=== PATIENT | female | born 1960 | race Caucasian/White ===

== ENCOUNTER 2016-06-21 18:10 | Emergency (ER) | payer BC ==
[~2016-06-21] VITALS: Ht 162.6 cm; Wt 77.9 kg
[~2016-06-21 18:10] MED LIST: ALBU1AER9 INH; ALEN70TA4 PO; CALC-51 PO; CHOL2000 PO; DROS1TAB24 PO; MULT-506 PO; OMEGCAP2 PO; ONDA4TAB7 SL; OXYC2.5T3 PO; PRT40 PO; SYMIN INH
[2016-06-21 18:19] VITALS: TEMP 36.8; Ht 162.6 cm; Wt 77.9 kg
[2016-06-21] MEDS ORDERED: SODIUM CHLORIDE 0.9% 1000ML 1,000 ML IV STA (18:42)
[2016-06-21] MEDS ORDERED: ONDANSETRON INJ 2 MG/ML 2 ML VIAL IV STA (18:42)
[2016-06-21] MEDS: MoRPHine SULFATE 4 MG/ML 1 ML CARP\\VIAL IV PRN ×2 (19:04→20:44)
--- NOTE | 2016-06-21 19:11 | DIAGNOSTIC IMAGING REPORT ---
CHEST ONE VIEW PORTABLE CLINICAL HISTORY: Pain, radiating to the abdomen. COMPARISON STUDY: No previous studies for comparison. FINDINGS: The cardiac and mediastinal contours are normal. There is no evidence of focal pulmonary consolidation. There is no evidence of failure. No pleural effusions are visualized.[A linear density at the left lung base likely represents subsegmental atelectatic change. There is no free air. IMPRESSION: No active disease in the chest. Electronically signed by: Andrew Ramirez M.D. 06/21/2016 7:10 PM Dictated Date/Time: 06/21/2016 7:09 PM
[2016-06-21 19:15] LABS: BASO % 0.2 %; BASO ABS # 0.02 K/uL (0-0.2); COMPLETE YES; EOS % 0.4 %; HEMATOCRIT 43.7 % (37-47); IG% 0.3 %; LYMPH % 21.9 %; LYMPH ABS # 2.39 K/uL (1.2-3.4); MEAN CORPUSCULAR HEMOGLOBIN 30.5 pg (25-34); MEAN CORPUSCULAR HGB CONC 34.3 g/dl (32-36); MEAN PLATELET VOLUME 9.8 fL (7.4-10.4); MONO % 6.4 %; NEUT % 70.8 %; PLATELET COUNT 291 K/uL (130-400); RED BLOOD COUNT 4.91 M/uL (4.2-5.4); WHITE BLOOD COUNT 10.89 K/uL (4.8-10.8)
[2016-06-21] MEDS ORDERED: ONDA4TAB46 PO (19:26)
[2016-06-21] MEDS ORDERED: MAGN400T6 PO (19:26)
[2016-06-21 19:32] LABS: BUN/CREATININE RATIO 16.7 (10-20); CALCIUM 9.4 mg/dl (8.5-10.1); CREATININE 0.72 mg/dl (0.60-1.20); POTASSIUM 3.6 mmol/L (3.5-5.1)
[2016-06-21 19:51] LABS: MANUAL MICROSCOPIC REQUIRED? NO; REVIEW REQ? NO; URINE APPEARANCE CLOUDY (CLEAR); URINE BILIRUBIN NEG (NEG); URINE COLOR DK YELLOW; URINE EPITHELIAL CELL AUTO >30 /lpf (0-5); URINE NITRITE NEG (NEG); URINE SPECIFIC GRAVITY 1.023 (1.000-1.030); UROBILINOGEN NEG (NEG); ZZUR CULT IF INDIC CLEAN CATCH NO
[2016-06-21] MEDS ORDERED: PERCOCET HOME PACK PO ONE (20:00)
[2016-06-21] MEDS ORDERED: ONDA4TAB10 SL (20:01)
--- NOTE | 2016-06-21 20:02 | EMERGENCY ROOM VISIT NOTE ---
History Report prepared by Kyle: Jonna Lacey Under the Supervision of: Dr. Wei Villalobos D.O. First contact with patient: 18:24 Chief Complaint: ABDOMINAL PAIN Stated Complaint: ABD PAIN DIARRHEA Nursing Triage Summary: Triage note: pt reports since thursday she has had a headache, nausea, vomitting. pt reports generalized abd pain since approx 1230 today. History of Present Illness The patient is a 55 year old female who presents to the Emergency Room with complaints of constant diffuse abdominal pain that started about 6 hours ago. The pain is worse right before she has a bowel movement. The patient states that she woke up this morning feeling well. She states that she ate eggs and toast for breakfast. After eating, she developed the abdominal pain. She states that the pain felt like she is going to experience diarrhea, but when she tried to go to the bathroom she did not have a bowel movement. She eventually experienced diarrhea. She is unsure of how many episodes of diarrhea she experienced. The patient adds that she has not felt well since Thursday. She states that today was the first day that she was doing better and able to eat. The patient states that she developed a severe headache 3 days ago and it persisted until yesterday. She reports that she has never experienced a headache that severe. She denies any headaches today. The patient also experienced nausea and vomiting 3 days ago, so she went to a walk-in clinic and they prescribed her Zofran. The Zofran relieved her nausea and vomiting. She is currently experiencing nausea, but denies any vomiting. She did not try to relieve the nausea with Zofran. The patient states that she called her PCP and described her symptoms. They recommended that she come into the ED for further evaluation. Source of History: patient Onset: 6 hours ago Position: abdomen (diffuse) Timing: constant Modifying Factors (Worsening): other (right before bowel movement) Associated Symptoms: + diarrhea, + headache, + nausea, + vomiting Review of Systems See HPI for pertinent positives & negatives. A total of 10 systems reviewed and were otherwise negative. Past Medical & Surgical Medical Problems: (1) Asthma Family History Cancer Heart disease Hypertension Social History Smoking Status: Never Smoker Alcohol Use: none Drug Use: none Marital Status: Housing Status: lives with family Occupation Status: employed Current/Historical Medications Scheduled Budesonide/Formoterol Fumarate (Symbicort 160-4.5 Mcg/Act), 2 PUFFS INH DAILY Calcium Carbonate-Vitamin D (Calcium), 1,000 MG PO DAILY Cholecalciferol (Vitamin D3), 2,000 MG PO DAILY Magnesium Oxide (Mag-Ox), 400 MG PO DAILY Multivitamin (Multivitamin), 1 TAB PO DAILY Ondasetron Odt (Zofran Odt), 4 MG SL Q6H Scheduled PRN Albuterol (Proair Hfa), 2 PUFFS INH Q6H PRN for prn Ondansetron Hcl (Zofran), 4 MG PO for Nausea Allergies Coded Allergies: Amoxicillin (Unverified Allergy, Severe, rash-see comment, 06/21/16) pt states a rash happened years ago. Unsure if it was the Amoxicillin or another medication she was taking with it at that time. Penicillins (Verified Allergy, Unknown, `, 06/21/16) NSAIDs (Verified Adverse Reaction, Unknown, PER PT PCP, 06/21/16) Physical Exam Vital Signs Date Time Temp Pulse Resp B/P Pulse Ox O2 Delivery O2 Flow Rate FiO2 06/21/16 18:19 36.8 91 18 143/98 98 Room Air Physical Exam CONSTITUTIONAL/VITAL SIGNS: Reviewed / noted above. GENERAL: Non-toxic in appearance. INTEGUMENTARY: Warm, dry, and [place]. HEAD: Normocephalic. EYES: without scleral icterus or trauma. ENT/OROPHARYNX: clear and moist. LYMPHADENOPATHY/NECK: Is supple without lymphadenopathy or meningismus. RESPIRATORY: Lungs clear and equal. CARDIOVASCULAR: Regular rate and rhythm. GI/ABDOMEN: Soft. Mild diffuse tenderness. No organomegaly or pulsatile mass. No rebound or guarding. Normal bowel sounds. EXTREMITIES: Warm and well perfused. BACK: No CVA tenderness. NEUROLOGICAL: Intact without focal deficits. PSYCHIATRIC: normal affect. MUSCULOSKELETAL: Normally developed with good muscle tone. Medical Decision & Procedures ER Provider Diagnostic Interpretation: X ray results and stated below per my interpretation and radiology interpretation. CHEST ONE VIEW PORTABLE IMPRESSION: No active disease in the chest. Electronically signed by: Andrew Ramirez M.D. 06/21/2016 7:10 PM Dictated Date/Time: 06/21/2016 7:09 PM Laboratory Results 06/21/16 19:10 Red Blood Count 4.91, Mean Corpuscular Volume 89.0, Mean Corpuscular Hemoglobin 30.5, Mean Corpuscular Hemoglobin Concent 34.3, Mean Platelet Volume 9.8, Neutrophils (%) (Auto) 70.8, Lymphocytes (%) (Auto) 21.9, Monocytes (%) (Auto) 6.4, Eosinophils (%) (Auto) 0.4, Basophils (%) (Auto) 0.2, Neutrophils # (Auto) 7.71, Lymphocytes # (Auto) 2.39, Monocytes # (Auto) 0.70, Eosinophils # (Auto) 0.04, Basophils # (Auto) 0.02 06/21/16 19:10 Test 06/21/16 19:05 06/21/16 19:10 Urine Color DK YELLOW Urine Appearance CLOUDY (CLEAR) Urine pH 5.0 (4.5-7.5) Urine Specific [place] 1.023 (1.000-1.030) Urine Protein NEG (NEG) Urine Glucose (UA) NEG (NEG) Urine Ketones 1+ (NEG) Urine Occult Blood NEG (NEG) Urine Nitrite NEG (NEG) Urine Bilirubin NEG (NEG) Urine Urobilinogen NEG (NEG) Urine Leukocyte Esterase NEG (NEG) Urine WBC (Auto) 1-5 /hpf (0-5) Urine RBC (Auto) 0-4 /hpf (0-4) Urine Hyaline Casts (Auto) 1-5 /lpf (0-5) Urine Epithelial Cells (Auto) >30 /lpf (0-5) Urine Bacteria (Auto) NEG (NEG) White Blood Count 10.89 K/uL (4.8-10.8) Red Blood Count 4.91 M/uL (4.2-5.4) Hemoglobin 15.0 g/dL (12.0-16.0) Hematocrit 43.7 % (37-47) Mean Corpuscular Volume 89.0 fL (80-100) Mean Corpuscular Hemoglobin 30.5 pg (25-34) Mean Corpuscular Hemoglobin Concent 34.3 g/dl (32-36) Platelet Count 291 K/uL (130-400) Mean Platelet Volume 9.8 fL (7.4-10.4) Neutrophils (%) (Auto) 70.8 % Lymphocytes (%) (Auto) 21.9 % Monocytes (%) (Auto) 6.4 % Eosinophils (%) (Auto) 0.4 % Basophils (%) (Auto) 0.2 % Neutrophils # (Auto) 7.71 K/uL (1.4-6.5) Lymphocytes # (Auto) 2.39 K/uL (1.2-3.4) Monocytes # (Auto) 0.70 K/uL (0.11-0.59) Eosinophils # (Auto) 0.04 K/uL (0-0.5) Basophils # (Auto) 0.02 K/uL (0-0.2) RDW Standard Deviation 42.2 fL (36.4-46.3) RDW Coefficient of Variation 13.0 % (11.5-14.5) Immature Granulocyte % (Auto) 0.3 % Immature Granulocyte # (Auto) 0.03 K/uL (0.00-0.02) Anion Gap 12.0 mmol/L (3-11) Est Creatinine Clear Calc Drug Dose 91.3 ml/min Estimated GFR () 110.8 Estimated GFR (Non- 95.6 BUN/Creatinine Ratio 16.7 (10-20) Calcium Level 9.4 mg/dl (8.5-10.1) Total Bilirubin 0.5 mg/dl (0.2-1) Direct Bilirubin 0.1 mg/dl (0-0.2) Aspartate Amino Transf (AST/SGOT) 16 U/L (15-37) Alanine Aminotransferase (ALT/SGPT) 19 U/L (12-78) Alkaline Phosphatase 64 U/L (45-117) Total Protein 7.5 gm/dl (6.4-8.2) Albumin 4.0 gm/dl (3.4-5.0) Lipase 178 U/L (73-393) Laboratory results as stated above per my review. Medications Administered Medications (Trade) Dose Ordered Sig/Hilaria Route Start Time Stop Time Status Last Admin Dose Admin Sodium Chloride (Nss 1000ml) 1,000 ml @ 999 mls/hr Q1H1M STAT IV 06/21/16 18:42 06/21/16 19:42 DC 06/21/16 19:03 999 MLS/HR Ondansetron HCl (Zofran Inj) 4 mg NOW STAT IV 06/21/16 18:42 06/21/16 18:43 DC 06/21/16 19:03 4 MG Morphine Sulfate (MoRPHine SULFATE INJ) 4 mg Q1H PRN IV 06/21/16 19:00 07/05/16 18:59 06/21/16 19:04 4 MG ED Course 1839: Previous medical records were reviewed. The patient was evaluated in room A10. A complete history and physical examination was performed. 1841: Ordered Zofran Inj 4 mg IV, Sodium Chloride 1000 ml @ 999 mls/hr IV 1899: Ordered Morphine Sulfate 4 mg IV 1955: On reevaluation, the patient is doing better. I discussed the results and findings with the patient. She verbalized agreement of the treatment plan. She was discharged home. 1999: Ordered Oxycodone/Acetaminophen 1 homepack PO Medical Decision Differential considered: pancreatitis, hepatitis, or acute cholecystitis, AAA, UTI, pyelonephritis, kidney stones, appendicitis, diverticulitis, shingles, bowel obstruction mesenteric ischemia, intussusception, hernia, ovarian torsion , ruptured ovarian cyst. This is a 55-year-old female who presents to the ED with a chief complaint of nausea and vomiting as well as abdominal cramps and diarrhea. The patient states that her symptoms started on Thursday around 4 PM. She began having vomiting and a headache. She also had 2 bowel movements that day. She was prescribed some Zofran and seemed to improve. This morning she states that she ate some eggs. This afternoon around noon she developed cramping abdominal pain as well as numerous episodes of diarrhea. She states that everything is going through her. She continues to have nausea. Denies any vomiting at this time. Her abdominal pain is somewhat diffuse. Her vital signs are stable. Her physical exam reveals some mild tenderness diffusely on the abdomen. She is otherwise nontoxic in appearance. Chest x-ray did not show acute disease. White blood cell count was 10.9. Complete metabolic panel was normal. Lipase is negative. Urine revealed 1+ ketones. The patient was treated with IV fluids , IV Zofran as well as IV morphine. The patient was told the results of the tests. She was feeling better at time of disposition. She was discharged with a Percocet home pack and a prescription for Zofran. Impression Primary Impression: Vomiting and diarrhea Scribe Attestation The scribe's documentation has been prepared under my direction and personally reviewed by me in its entirety. I confirm that the note above accurately reflects all work, treatment, procedures, and medical decision making performed by me. Departure Information Dispostion Home / Self-Care Prescriptions Ondasetron Odt (ZOFRAN ODT) 4 Mg Tab 4 MG SL Q6H for Nausea, #20 TAB Prov: Wei Villalobos D.O. 06/21/16 Referrals Ck Adams M.D. (PCP) Forms Call Back Authorization, HOME CARE DOCUMENTATION FORM, IMPORTANT VISIT INFORMATION Patient Instructions Diarrhea, My [facility] Additional Instructions Zofran: Allow one tablet to dissolve under the tongue every 6 hours as needed for nausea or vomiting. Anticipate improvement of symptoms over the next 2-3 days. If symptoms persist, contact your doctor in follow-up within this week. If things worsen, return for reevaluation.
[2016-06-21 20:20] VITALS: BP 140/69; PULSE 81; O2SAT 96
== END 2016-06-21 20:50 | disposition home or self-care (01) ==
LOC: C.EDB 18:11 → C.EDA 20:50
DX: R11.10 Vomiting, unspecified (principal); R19.7 Diarrhea, unspecified; J45.909 Unspecified asthma, uncomplicated; Z80.9 Family history of malignant neoplasm, unspecified; Z82.49 Family history of ischemic heart disease and other diseases of the circulatory system; Z88.1 Allergy status to other antibiotic agents; Z88.0 Allergy status to penicillin

== ENCOUNTER → 2017-08-11 | Outpatient (CLI) | payer OTHER ==
[~2017-08-11] MED LIST changes: -ALEN70TA4 PO; -DROS1TAB24 PO; +MAGN400T6 PO; -OMEGCAP2 PO; +ONDA4TAB46 PO; -ONDA4TAB7 SL; -OXYC2.5T3 PO; -PRT40 PO
--- NOTE | 2017-08-12 14:12 | MAMMOGRAPHY REPORT ---
BILATERAL DIGITAL SCREENING MAMMOGRAM TOMOSYNTHESIS WITH CAD: 08/11/2017 CLINICAL HISTORY: Routine screening. Patient has no complaints. TECHNIQUE: Breast tomosynthesis in addition to standard 2D mammography was performed. Current study was also evaluated with a Computer Aided Detection (CAD) system. COMPARISON: Comparison is made to exams dated: 05/21/2016 mammogram, 03/30/2015 mammogram, 10/31/2013 m ammogram, 09/14/2012 mammogram, 04/07/2011 mammogram, and 04/03/2010 mammogram - [facility] [place]. BREAST COMPOSITION: There are scattered areas of fibroglandular density in both breasts. FINDINGS: No suspicious masses, calcifications, or areas of architectural distortion are noted in ei ther breast. There has been no significant interval change compared to prior exams. IMPRESSION: ACR BI-RADS CATEGORY 1: NEGATIVE There is no mammographic evidence of malignancy. A 1 year screening mammogram is recommended. The pa tient will receive written notification of the results. Approximately 10% of breast cancers are not detected with mammography. A negative mammographic report should not delay biopsy if a clinically suggestive mass is present. Gretchen Carpio M.D. ah/:08/11/2017 14:45:09 Statistical Geneticist: Bettie JOSEPH(Isabella)(M), [facility] [place] letter sent: Normal 1/2 BI-RADS Code: ACR BI-RADS Category 1: Negative
== END | disposition home or self-care (01) ==
LOC: C.MAMM 13:05
PROVIDERS: ATTEND Obstetrics & Gynecology
DX: Z12.31 Encounter for screening mammogram for malignant neoplasm of breast (principal)